=== PATIENT | male | born 1970 | race American Indian/Alaskan Native ===

== ENCOUNTER 2019-03-07 15:24 | Observation (INO) | payer OTHER ==
--- NOTE | 2019-03-07 15:47 | Event Note ---
ED Screening Note Date of service: 03/07/19 Time: 15:43 ED Screening Note: This is a 48 y.o. M. that presents to the ER with abdominal pain since yesterday. + Nausea, hot flashes, and upper abdominal pain - recent travel, diarrhea, vomiting, fever, chest pain, and palpitations This initial assessment/diagnostic orders/clinical plan/treatment(s) is/are subject to change based on patients health status, clinical progression and re- assessment by fellow clinical providers in the ED. Further treatment and workup at subsequent clinical providers discretion. Patient/guardian urged not to elope from the ED as their condition may be serious if not clinically assessed and managed. Initial orders include: Labs
[2019-03-07 16:09] LABS: Basophils % (Auto) 0.2 % (0.0-1.8); Eosinophils % (Auto) 0.4 % (0.0-4.3); Hematocrit 51.6 % (35.5-45.6); Hemoglobin 17.2 gm/dl (11.8-15.2); Lymphocytes # (Auto) 0.8 K/mm3 (1.2-5.4); Mean Corpuscular HGB Conc 33 % (32-34); Mean Corpuscular Volume 91 fl (84-94); Monocytes # (Auto) 0.6 K/mm3 (0.0-0.8); Monocytes % (Auto) 9.3 % (0.0-7.3); Platelet Count 210 K/mm3 (140-440); Red Blood Count 5.68 M/mm3 (3.65-5.03); Red Cell Distribution Width 12.7 % (13.2-15.2)
[2019-03-07 16:20] LABS: Albumin 4.5 g/dL (3.9-5); BUN/Creatinine Ratio 14; Blood Urea Nitrogen 11 mg/dL (9-20); Calcium 8.9 mg/dL (8.4-10.2); Hemolysis Index 95
[2019-03-07 16:35] LABS: Alanine Aminotransferase 833 units/L (7-56)
[2019-03-07] MEDS ORDERED: SODIUM CHLORIDE 0.9% 1000 ML 1,000 ML IV ONE ×2 (16:41→18:24)
[2019-03-07] MEDS ORDERED: ONDANSETRON 4 MG/2 ML INJ IV ONE (16:50)
[2019-03-07] MEDS ORDERED: MORPHINE 4 MG/1 ML INJ IV ONE (16:50)
--- NOTE | 2019-03-07 18:11 | Emergency Department Report ---
HPI - HPI HPI: 48 YO MALE COMES TO ER CO SEVERE ABD PAIN APOLLO RUQ. 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 OCC ETOH- LAST 3 W AGO. HAS NOT SEEN MD OR TAKEN ANY MEDS TO FEEL BETTER. PAIN 03/21 APOLLO RUQ/EIPIGASTRIC AREA. NO DIARRHEA NO FEVER OR CHILLS NEVER HAD IN THE PAST NO DYSURIA PMH NONE PSH NONE RX NONE ALLERGIES NONE <OLIVIER MORENO - Last Filed: 03/07/19 18:48> <JEROME PARKS - Last Filed: 03/07/19 20:04> - General Chief Complaint: Abdominal Pain Time Seen by Provider: 03/07/19 15:43 ED Past Medical Hx - Past Medical History Previous Medical History?: No - Surgical History Past Surgical History?: No - Social History Smoking Status: Never Smoker Substance Use Type: Alcohol <OLIVIER MORENO - Last Filed: 03/07/19 18:48> ED Review of Systems ROS: Stated complaint: ABD PAIN Other details as noted in HPI Comment: All other systems reviewed and negative <OLIVIER MORENO - Last Filed: 03/07/19 18:48> ROS: Stated complaint: ABD PAIN Other details as noted in HPI <JEROME PARKS Filed: 03/07/19 20:04> Physical Exam - Physical Exam Vital Signs: Vital Signs 03/07/19 15:43 Temperature 98.4 F Pulse Rate 57 L Respiratory 18 Rate Blood Pressure 148/87 O2 Sat by Pulse 97 Oximetry Physical Exam: ALERT AND ORIENTED S1S2 LUNGS CTA ABD TENDERNESS RUQ AND EPIGASTRIC ON LIGHT AND DEEP PALPATION NO CVA TENDERNESS NO EDEMA/NO JVD/ NO ASCITIES NO JAUNDICE APPRECIATED ON EXAM <OLIVIER MORENO - Last Filed: 03/07/19 18:48> - Physical Exam Vital Signs: Vital Signs 03/07/19 15:43 Temperature 98.4 F Pulse Rate 57 L Respiratory 18 Rate Blood Pressure 148/87 O2 Sat by Pulse 97 Oximetry <JEROME PARKS - Last Filed: 03/07/19 20:04> ED Course Vital Signs 03/07/19 15:43 Temperature 98.4 F Pulse Rate 57 L Respiratory 18 Rate Blood Pressure 148/87 O2 Sat by Pulse 97 Oximetry - Reevaluation(s) Reevaluation #1: 03/07/19 18:45 PT WITH ADEQUATE PAIN CONTROL AT THIS TIME. PT AND FAMILY UPDATED ON PLAN OF CARE <OLIVIER MORENO - Last Filed: 03/07/19 18:48> Vital Signs 03/07/19 15:43 Temperature 98.4 F Pulse Rate 57 L Respiratory 18 Rate Blood Pressure 148/87 O2 Sat by Pulse 97 Oximetry <JEROME PARKS - Last Filed: 03/07/19 20:04> ED Medical Decision Making - Lab Data Result diagrams: 03/07/19 15:51 03/07/19 15:51 - Radiology Data Radiology results: report reviewed, image reviewed - Medical Decision Making Lab Results 03/07/19 03/07/19 Range/Units 15:51 15:51 WBC 6.4 (4.5-11.0) K/mm3 RBC 5.68 H (3.65-5.03) M/mm3 Hgb 17.2 H (11.8-15.2) gm/dl Hct 51.6 H (35.5-45.6) % MCV 91 (84-94) fl MCH 30 (28-32) pg MCHC 33 (32-34) % RDW 12.7 L (13.2-15.2) % Plt Count 210 (140-440) K/mm3 Lymph % (Auto) 12.0 L (13.4-35.0) % [place] % (Auto) 9.3 H (0.0-7.3) % Eos % (Auto) 0.4 (0.0-4.3) % Baso % (Auto) 0.2 (0.0-1.8) % Lymph # 0.8 L (1.2-5.4) K/mm3 [place] # 0.6 (0.0-0.8) K/mm3 Eos # 0.0 (0.0-0.4) K/mm3 Baso # 0.0 (0.0-0.1) K/mm3 Seg Neutrophils % 78.1 H (40.0-70.0) % Seg Neutrophils # 5.0 (1.8-7.7) K/mm3 Sodium 140 (137-145) mmol/L Potassium 4.0 (3.6-5.0) mmol/L Chloride 101.1 (98-107) mmol/L Carbon Dioxide 28 (22-30) mmol/L Anion Gap 15 mmol/L BUN 11 (9-20) mg/dL Creatinine 0.8 (0.8-1.5) mg/dL Estimated GFR > 60 ml/min BUN/Creatinine Ratio 14 % Glucose 124 H (75-100) mg/dL Calcium 8.9 (8.4-10.2) mg/dL Total Bilirubin 3.30 H (0.1-1.2) mg/dL AST 596 H (5-40) units/L ALT 833 H (7-56) units/L Alkaline Phosphatase 124 (35-129) units/L Total Protein 8.2 (6.3-8.2) g/dL Albumin 4.5 (3.9-5) g/dL Albumin/Globulin Ratio 1.2 % Lipase 27 (13-60) units/L Labs 03/07/19 03/07/19 15:51 15:51 WBC 6.4 RBC 5.68 H Hgb 17.2 H Hct 51.6 H MCV 91 MCH 30 MCHC 33 RDW 12.7 L Plt Count 210 Lymph % (Auto) 12.0 L [place] % (Auto) 9.3 H Eos % (Auto) 0.4 Baso % (Auto) 0.2 Lymph # 0.8 L [place] # 0.6 Eos # 0.0 Baso # 0.0 Seg Neutrophils % 78.1 H Seg Neutrophils # 5.0 Sodium 140 Potassium 4.0 Chloride 101.1 Carbon Dioxide 28 Anion Gap 15 BUN 11 Creatinine 0.8 Estimated GFR > 60 BUN/Creatinine Ratio 14 Glucose 124 H Calcium 8.9 Total Bilirubin 3.30 H AST 596 H ALT 833 H Alkaline Phosphatase 124 Total Protein 8.2 Albumin 4.5 Albumin/Globulin Ratio 1.2 Lipase 27 MEDICATED FOR PAIN/2L NS/ ZOFRAN/PROTONIX IN ER LABS NOTED CT NOTED 1844 WILL SEND FOR ULTRASOUND RUQ PER CT RECS UA PENDING PT CURRENTLY WITH IMPROVED PAIN P MORPHINE FAMILY NOW AT BEDSIDE PT AND FAMILY UPDATED ON PLAN OF CARE - Differential Diagnosis RO PANCREATITIS/CHOLEY/ GASTRITIS <OLIVIER MORENO - Last Filed: 03/07/19 18:48> - Lab Data Result diagrams: 03/07/19 15:51 03/07/19 15:51 - Medical Decision Making This is a 48-year-old male that was signed out to me by Reema Grigsby for a pending ultrasound report. Patient result has been discussed with Dr. carrington and agrees for admission. I will start patient on Zosyn and place patient nothing by mouth. Patient was consulted with Dr. Dasilva by Dr. Jung. Patien t will be admitted with Dr. Georges. At time of admission, the patient does not seem toxic or ill in appearance. No acute signs of distress noted. Patient agrees to admission treatment plan of care. No further questions noted by the patient. <JEROME PARKS - Last Filed: 03/07/19 20:04> Critical care attestation.: If time is entered above; I have spent that time in minutes in the direct care of this critically ill patient, excluding procedure time. <OLIVIER MORENO A - Last Filed: 03/07/19 18:48> Critical care attestation.: If time is entered above; I have spent that time in minutes in the direct care of this critically ill patient, excluding procedure time. <JEROME PARKS - Last Filed: 03/07/19 20:04> ED Disposition Is pt being admited?: No Does the pt Need Aspirin: No Time of Disposition: 18:26 <OLIVIER MORENO - Last Filed: 03/07/19 18:48> Is pt being admited?: Yes <JEROME PARKS Filed: 03/07/19 20:04> Clinical Impression: Acute cholecystitis Disposition: OP ADMIT IP TO THIS HOSP Condition: Stable
--- NOTE | 2019-03-07 18:15 | Cat Scan Report ---
CT of the abdomen and pelvis with intravenous contrast INDICATION / CLINICAL INFORMATION: Generalized abdominal pain. TECHNIQUE: The patient received 100 cc Omnipaque [address] scans at this location are performed using CT dose reduction for ALARA by means of automated exposure control. COMPARISON: None available. FINDINGS: ABDOMEN: There are calcified stones in the gallbladder. The gallbladder is normal in size and demonst rates mild diffuse wall thickening. There is mild periportal edema. The bile ducts are normal in mayela lorena. The pancreas, spleen, adrenal glands and left kidney are normal. There is a subcentimeter simple cyst in the right mid kidney anteriorly. There are multiple mildly dilated fluid-filled proximal small manas wel loops with normal mid to distal small bowel present. I see no evidence of bowel wall thickening o r free air. No adenopathy is identified. There is mild bibasilar dependent atelectasis. PELVIS: The prostate gland is mildly enlarged. The distal ureters and urinary bladder are normal. A n ormal appendix is present and there is no evidence of diverticulitis. No abnormal mass or fluid colle ction is seen. I do not identify a hernia. No acute osseous abnormality is identified. IMPRESSION: 1. Cholelithiasis. Mild diffuse gallbladder wall thickening is nonspecific and may be related to acut e or chronic cholecystitis. Depending on clinical findings, gallbladder ultrasound or hepatobiliary s cintigraphy may be helpful in further evaluation. 2. Mild periportal edema may just be reactive. Mildly dilated loop filled proximal small bowel loops are nonspecific and likely related to a localized adynamic ileus. Signer Name: Raffy Nevarez MD Signed: 03/07/2019 6:11 PM Workstation Name: [id number]
[2019-03-07] MEDS ORDERED: PANTOPRAZOLE 40 MG INJ IV ONE (18:24)
[2019-03-07 18:41] LABS: Bilirubin,Urine NEG (Negative); Blood,Urine MOD (Negative); Color,Urine Amber (Yellow); Mucus,Urine 3+ /HPF; Protein,Urine <15 mg/dL mg/dL (Negative)
--- NOTE | 2019-03-07 19:35 | Ultrasound Report ---
US abdomen limited INDICATION / CLINICAL INFORMATION: RUQ PAIN. COMPARISON: CT abdomen done earlier today. FINDINGS: Multiple stones are demonstrated in the gallbladder. Ultrasound also shows gallbladder wall thickenin g, which could be acute or chronic. There is no pericholecystic edema. Common duct is normal in size. IMPRESSION: 1. Cholelithiasis. There is certainly some degree of chronic cholecystitis, and there may well be acu te superimposed acute cholecystitis. Signer Name: Issa Solomon MD Signed: 03/07/2019 7:31 PM Workstation Name: [id number]
[2019-03-07] MEDS ORDERED: PIPERACIL/TAZOBACTA 4.5/NS 100 4.5 GM/100 ML VIAL IV ONE (19:59)
--- NOTE | 2019-03-07 20:00 | Event Note ---
Face to Face: asked by nurse practitioner to evaluate patient. In short, this is a 48-year-old gentleman with a complaint of epigastric and right upper quadrant pain, which started yesterday. he is not especially tender however, he has a transaminitis, and both ultrasound and CAT scan suggests a possible acute cholecystitis. Given transaminitis, history and physical, plan to admit to medical service for pain control, serial abdominal exams, empiric antibiotic therapy, and hida scan We'll also obtain general surgical consultation. Negative Nava sign at this time. Vital Signs 03/07/19 15:43 Temperature 98.4 F Pulse Rate 57 L Respiratory 18 Rate Blood Pressure 148/87 O2 Sat by Pulse 97 Oximetry Lab Results 03/07/19 03/07/19 03/07/19 Range/Units 15:45 15:51 15:51 WBC 6.4 (4.5-11.0) K/mm3 RBC 5.68 H (3.65-5.03) M/mm3 Hgb 17.2 H (11.8-15.2) gm/dl Hct 51.6 H (35.5-45.6) % MCV 91 (84-94) fl MCH 30 (28-32) pg MCHC 33 (32-34) % RDW 12.7 L (13.2-15.2) % Plt Count 210 (140-440) K/mm3 Lymph % (Auto) 12.0 L (13.4-35.0) % [place] % (Auto) 9.3 H (0.0-7.3) % Eos % (Auto) 0.4 (0.0-4.3) % Baso % (Auto) 0.2 (0.0-1.8) % Lymph # 0.8 L (1.2-5.4) K/mm3 [place] # 0.6 (0.0-0.8) K/mm3 Eos # 0.0 (0.0-0.4) K/mm3 Baso # 0.0 (0.0-0.1) K/mm3 Seg Neutrophils % 78.1 H (40.0-70.0) % Seg Neutrophils # 5.0 (1.8-7.7) K/mm3 Sodium 140 (137-145) mmol/L Potassium 4.0 (3.6-5.0) mmol/L Chloride 101.1 (98-107) mmol/L Carbon Dioxide 28 (22-30) mmol/L Anion Gap 15 mmol/L BUN 11 (9-20) mg/dL Creatinine 0.8 (0.8-1.5) mg/dL Estimated GFR > 60 ml/min BUN/Creatinine Ratio 14 % Glucose 124 H (75-100) mg/dL Calcium 8.9 (8.4-10.2) mg/dL Total Bilirubin 3.30 H (0.1-1.2) mg/dL AST 596 H (5-40) units/L ALT 833 H (7-56) units/L Alkaline Phosphatase 124 (35-129) units/L Total Protein 8.2 (6.3-8.2) g/dL Albumin 4.5 (3.9-5) g/dL Albumin/Globulin Ratio 1.2 % Lipase 27 (13-60) units/L Urine Color Thi (Yellow) Urine Turbidity Clear (Clear) Urine pH 5.0 (5.0-7.0) Ur Specific [place] 1.016 (1.003-1.030) Urine Protein <15 mg/dl (Negative) mg/dL Urine Glucose (UA) Neg (Negative) mg/dL Urine Ketones Neg (Negative) mg/dL Urine Blood Mod (Negative) Urine Nitrite Neg (Negative) Urine Bilirubin Neg (Negative) Urine Urobilinogen 4.0 (<2.0) mg/dL Ur Leukocyte Esterase Neg (Negative) Urine WBC (Auto) 3.0 (0.0-6.0) /HPF Urine RBC (Auto) 7.0 (0.0-6.0) /HPF U Epithel Cells (Auto) < 1.0 (0-13.0) /HPF Urine Mucus 3+ /HPF Referring Physician: OLIVIER MORENO Patient Name: DOROTHEA GALLARDO Date of : 1970 Sex: Male Report Date: 2019-03-07 Report Status: Finalized Findings [facility] [address] [place] [address] Ultrasound Report Signed Patient: DOROTHEA GALLARDO MR#: [id number] : 1970 Acct:[id number] Age/Sex: 48 / M ADM Date: 03/07/19 Loc: ED Attending Dr: Ordering Physician: OLIVIER MORENO Date of Service: 03/07/19 Procedure(s): US abdomen limited Accession Number(s): [id number] cc: OLIVIER MORENO US abdomen limited INDICATION / CLINICAL INFORMATION: RUQ PAIN. COMPARISON: CT abdomen done earlier today. FINDINGS: Multiple stones are demonstrated in the gallbladder. Ultrasound also shows gallbladder wall thickening, which could be acute or chronic. There is no pericholecystic edema. Common duct is normal in size. IMPRESSION: 1. Cholelithiasis. There is certainly some degree of chronic cholecystitis, and there may well be acute superimposed acute cholecystitis. Signer Name: Issa Solomon MD Signed: 03/07/2019 7:31 PM Workstation Name: [id number] Transcribed By: TM Dictated By: Issa Solomon MD Electronically Authenticated By: Issa Solomon MD Signed Date/Time: 03/07/191930 Print Report Referring Physician: OLIVIER MORENO Patient Name: DOROTHEA GALLARDO Date of : 1970 Sex: Male Report Date: 2019-03-07 Report Status: Finalized Findings [place] [id number] Cat Scan Report Signed Patient: DOROTHEA GALLARDO MR#: [id number] : 1970 Acct:[id number] Age/Sex: 48 / M ADM Date: 03/07/19 Loc: ED Attending Dr: Ordering Physician: OLIVIER MORENO Date of Service: 03/07/19 Procedure(s): CT abdomen pelvis w con Accession Number(s): [id number] cc: OLIVIER MORENO CT of the abdomen and pelvis with intravenous contrast INDICATION / CLINICAL INFORMATION: Generalized abdominal pain. TECHNIQUE: The patient received 100 cc Omnipaque [address] scans at this location are performed using CT dose reduction for ALARA by means of automated exposure control. COMPARISON: None available. FINDINGS: ABDOMEN: There are calcified stones in the gallbladder. The gallbladder is normal in size and demonstrates mild diffuse wall thickening. There is mild periportal edema. The bile ducts are normal in caliber. The pancreas, spleen, adrenal glands and left kidney are normal. There is a subcentimeter simple cyst in the right mid kidney anteriorly. There are multiple mildly dilated fluid-filled proximal small bowel loops with normal mid to distal small bowel present. I see no evidence of bowel wall thickening or free air. No adenopathy is identified. There is mild bibasilar dependent atelectasis. PELVIS: The prostate gland is mildly enlarged. The distal ureters and urinary bladder are normal. A normal appendix is present and there is no evidence of diverticulitis. No abnormal mass or fluid collection is seen. I do not identify a hernia. No acute osseous abnormality is identified. IMPRESSION: 1. Cholelithiasis. Mild diffuse gallbladder wall thickening is nonspecific and may be related to acute or chronic cholecystitis. Depending on clinical findings, gallbladder ultrasound or hepatobiliary scintigraphy may be helpful in further evaluation. 2. Mild periportal edema may just be reactive. Mildly dilated loop filled proximal small bowel loops are nonspecific and likely related to a localized adynamic ileus. Signer Name: Raffy Nevarez MD Signed: 03/07/2019 6:11 PM Workstation Name: [id number] Transcribed By: RT Dictated By: Raffy Nevarez MD Electronically Authenticated By: Raffy Nevarez MD Signed Date/Time: 03/07/191810 DD/ 05
[2019-03-07] MEDS ORDERED: ACETAMINOPHEN 325 MG TAB PO PRN (22:40)
[2019-03-07] MEDS ORDERED: MORPHINE 4 MG/1 ML INJ IV PRN (22:40)
[2019-03-07] MEDS ORDERED: ONDANSETRON 4 MG/2 ML INJ IV PRN (22:40)
--- NOTE | 2019-03-07 23:05 | History and Physical Report ---
History of Present Illness Chief complaint: Right upper quadrant pain History of present illness: 48-year-old man who denies having any significant past medical history who presents to the hospital complaining of right upper quadrant pain. He states that the pain is as bad as 10 out of 10, is in epigastric area and right upper quadrant. Does not radiate anywhere. No diarrhea, no fevers no chills. He said he is never had pain like this in his life. He denies eating any food out left standing or eating any takeout. Denies any sick contacts. Pain has been going on for a few days. States that has resolved since getting pain meds in the ER. Past History Past Medical History: No medical history Past Surgical History: No surgical history Social history: no significant social history Family history: no significant family history Medications and Allergies Allergies Allergy/AdvReac Type Severity Reaction Status Date / Time No Known Allergies Allergy Verified 03/07/19 22:49 Active Meds: Active Medications Acetaminophen (Tylenol) 650 mg PO Q4H PRN PRN Reason: Pain MILD(1-3)/Fever >100.5/FERRELL Enoxaparin Sodium (Lovenox) 40 mg SUB-Q QDAY CLARICE Levofloxacin/Dextrose (Levaquin 750mg/150ml) 750 mg in 150 mls @ 100 mls/hr IV Q24HR CLARICE; Protocol Sodium Chloride (Nacl 0.45% 1000 Ml) 1,000 mls @ 125 mls/hr IV DIRECT CLARICE Morphine Sulfate (Morphine) 4 mg IV Q4H PRN PRN Reason: Pain , Severe (7-10) Ondansetron HCl (Zofran) 4 mg IV Q4HR PRN PRN Reason: Nausea And Vomiting Sodium Chloride (Sodium Chloride Flush Syringe 10 Ml) 10 ml IV BID CLARICE Sodium Chloride (Sodium Chloride Flush Syringe 10 Ml) 10 ml IV PRN PRN PRN Reason: LINE FLUSH Review of Systems All systems: negative Constitutional: anorexia Ears, nose, mouth and throat: no ear pain Cardiovascular: no chest pain Respiratory: no cough Gastrointestinal: abdominal pain, no vomiting Genitourinary Male: no dysuria Rectal: no pain Musculoskeletal: no neck stiffness Integumentary: no rash Neurological: no head injury Psychiatric: no anxiety Endocrine: no cold intolerance Hematologic/Lymphatic: no easy bruising Allergic/Immunologic: no urticaria Exam - Constitutional Vitals: Temp Pulse Resp BP Pulse Ox 97.5 F L 61 18 119/77 96 03/07/19 19:58 03/07/19 19:58 03/07/19 19:58 03/07/19 19:58 03/07/19 19:58 General appearance: Present: no acute distress, well-nourished - EENT Eyes: Present: PERRL ENT: hearing intact, clear oral mucosa - Neck Neck: Present: supple, normal ROM - Respiratory Respiratory effort: normal Respiratory: bilateral: CTA - Cardiovascular Heart Sounds: Present: S1 & S2. Absent: rub, click - Extremities Extremities: pulses symmetrical, No edema Peripheral Pulses: within normal limits - Abdominal General gastrointestinal: Present: soft, non-tender, non-distended, normal bowel sounds Male genitourinary: Present: normal - Integumentary Integumentary: Present: clear, warm, dry - Musculoskeletal Musculoskeletal: gait normal, strength equal bilaterally - Psychiatric Psychiatric: appropriate mood/affect, intact judgment & insight - Neurologic Neurologic: CNII-XII intact, moves all extremities Results - Labs CBC & Chem 7: 03/07/19 15:51 03/07/19 15:51 Labs: Laboratory Last Values WBC 6.4 K/mm3 (4.5-11.0) 03/07/19 15:51 RBC 5.68 M/mm3 (3.65-5.03) H 03/07/19 15:51 Hgb 17.2 gm/dl (11.8-15.2) H 03/07/19 15:51 Hct 51.6 % (35.5-45.6) H 03/07/19 15:51 MCV 91 fl (84-94) 03/07/19 15:51 MCH 30 pg (28-32) 03/07/19 15:51 MCHC 33 % (32-34) 03/07/19 15:51 RDW 12.7 % (13.2-15.2) L 03/07/19 15:51 Plt Count 210 K/mm3 (140-440) 03/07/19 15:51 Lymph % (Auto) 12.0 % (13.4-35.0) L 03/07/19 15:51 [place] % (Auto) 9.3 % (0.0-7.3) H 03/07/19 15:51 Eos % (Auto) 0.4 % (0.0-4.3) 03/07/19 15:51 Baso % (Auto) 0.2 % (0.0-1.8) 03/07/19 15:51 Lymph # 0.8 K/mm3 (1.2-5.4) L 03/07/19 15:51 [place] # 0.6 K/mm3 (0.0-0.8) 03/07/19 15:51 Eos # 0.0 K/mm3 (0.0-0.4) 03/07/19 15:51 Baso # 0.0 K/mm3 (0.0-0.1) 03/07/19 15:51 Seg Neutrophils % 78.1 % (40.0-70.0) H 03/07/19 15:51 Seg Neutrophils # 5.0 K/mm3 (1.8-7.7) 03/07/19 15:51 Sodium 140 mmol/L (137-145) 03/07/19 15:51 Potassium 4.0 mmol/L (3.6-5.0) 03/07/19 15:51 Chloride 101.1 mmol/L (98-107) 03/07/19 15:51 Carbon Dioxide 28 mmol/L (22-30) 03/07/19 15:51 15 mmol/L 03/07/19 15:51 BUN 11 mg/dL (9-20) 03/07/19 15:51 0.8 mg/dL (0.8-1.5) 03/07/19 15:51 Estimated GFR > 60 ml/min 03/07/19 15:51 14 % 03/07/19 15:51 Glucose 124 mg/dL (75-100) H 03/07/19 15:51 Calcium 8.9 mg/dL (8.4-10.2) 03/07/19 15:51 3.30 mg/dL (0.1-1.2) H 03/07/19 15:51 AST 596 units/L (5-40) H 03/07/19 15:51 ALT 833 units/L (7-56) H 03/07/19 15:51 124 units/L (35-129) 03/07/19 15:51 8.2 g/dL (6.3-8.2) 03/07/19 15:51 4.5 g/dL (3.9-5) 03/07/19 15:51 1.2 % 03/07/19 15:51 27 units/L (13-60) 03/07/19 15:51 Thi (Yellow) 03/07/19 15:45 Clear (Clear) 03/07/19 15:45 5.0 (5.0-7.0) 03/07/19 15:45 Ur Specific [place] 1.016 (1.003-1.030) 03/07/19 15:45 <15 mg/dl mg/dL (Negative) 03/07/19 15:45 Neg mg/dL (Negative) 03/07/19 15:45 Neg mg/dL (Negative) 03/07/19 15:45 Mod (Negative) 03/07/19 15:45 Neg (Negative) 03/07/19 15:45 Neg (Negative) 03/07/19 15:45 4.0 mg/dL (<2.0) 03/07/19 15:45 Ur Leukocyte Esterase Neg (Negative) 03/07/19 15:45 3.0 /HPF (0.0-6.0) 03/07/19 15:45 7.0 /HPF (0.0-6.0) 03/07/19 15:45 U Epithel Cells (Auto) < 1.0 /HPF (0-13.0) 03/07/19 15:45 3+ /HPF 03/07/19 15:45 Assessment and Plan Assessment and plan: 48-year-old man who presents with right upper quadrant and pain in the hypogastrium CT abdomen pelvis; cholelithiasis and diffuse gallbladder wall thickening, mild periportal edema. Right upper quadrant sono; cholelithiasis and some degree of chronic cholecystitis with superimposed acute cholecystitis Acute cholecystitis ED discussed with general surgeon Dr. Herzog, MRCP in the a.m., keep n.p.o., IV fluids, pain meds and nausea meds. Preventative health counseling performed for 17 minutes DVT prophylaxis with Lovenox
[2019-03-08] MEDS: SODIUM CHLORIDE 0.45% 1000 ML 1,000 ML IV SCH ×2 (01:46→11:05)
[2019-03-08 07:21] LABS: Basophils % (Auto) 0.9 % (0.0-1.8); Eosinophils # (Auto) 0.1 K/mm3 (0.0-0.4); Eosinophils % (Auto) 1.2 % (0.0-4.3); Hematocrit 42.4 % (35.5-45.6); Hemoglobin 14.5 gm/dl (11.8-15.2); Lymphocytes % (Auto) 23.9 % (13.4-35.0); Mean Corpuscular HGB Conc 34 % (32-34); Mean Corpuscular Volume 90 fl (84-94); Monocytes # (Auto) 0.4 K/mm3 (0.0-0.8); Monocytes % (Auto) 10.3 % (0.0-7.3); Platelet Count 165 K/mm3 (140-440); Red Blood Count 4.71 M/mm3 (3.65-5.03)
[2019-03-08 07:44] LABS: BUN/Creatinine Ratio 8; Blood Urea Nitrogen 8 mg/dL (9-20); Calcium 7.9 mg/dL (8.4-10.2); Hemolysis Index 4
--- NOTE | 2019-03-08 08:19 | Progress Note ---
Assessment and Plan Full consult dictated: History of Present Illness Chief complaint: Right upper quadrant pain History of present illness: 48-year-old man who denies having any significant past medical history who presents to the hospital complaining of right upper quadrant pain. He states that the pain is as bad as 10 out of 10, is in epigastric area and right upper quadrant. Does not radiate anywhere. No diarrhea, no fevers no chills. He said he is never had pain like this in his life. He denies eating any food out left standing or eating any takeout. Denies any sick contacts. Pain has been going on for a few days. States that has resolved since getting pain meds in the ER. Past History Past Medical History: No medical history Past Surgical History: No surgical history Social history: no significant social history Family history: no significant family history Pt admitted with RUQ abd pain but now "much better". has not received narcotics since yesterday pm Abd soft, non tender at present. GB US & CT findings as below. r/o biliary colic/ cholecystitis r/o CBD stones (elevated T Franklyn) Keep NPO IV Levaquin await MRCP findings. will follow with you GB US FINDINGS: Multiple stones are demonstrated in the gallbladder. Ultrasound also shows gallbladder wall thickening, which could be acute or chronic. There is no pericholecystic edema. Common duct is normal in size. IMPRESSION: 1. Cholelithiasis. There is certainly some degree of chronic cholecystitis, and there may well be acute superimposed acute cholecystitis. CT IMPRESSION: 1. Cholelithiasis. Mild diffuse gallbladder wall thickening is nonspecific and may be related to acute or chronic cholecystitis. Depending on clinical findings, gallbladder ultrasound or hepatobiliary scintigraphy may be helpful in further evaluation. 2. Mild periportal edema may just be reactive. Mildly dilated loop filled proximal small bowel loops are nonspecific and likely related to a localized adynamic ileus. Laboratory Tests 03/07/19 03/08/19 15:51 06:39 WBC 4.4 L Hgb 14.5 Hct 42.4 D Total Bilirubin 3.30 H AST 596 H ALT 833 H Alkaline Phosphatase 124 Lipase 27 Objective Vital Signs - 12hr 03/07/19 03/08/19 03/08/19 22:43 01:00 01:12 Temperature 99.1 F 97.4 F L Pulse Rate 63 59 L 63 Respiratory 17 18 Rate Blood Pressure Blood Pressure 137/81 114/72 [Right] O2 Sat by Pulse 97 94 94 Oximetry 03/08/19 03/08/19 04:41 07:46 Temperature 97.6 F 98.0 F Pulse Rate 48 L 53 L Respiratory 18 18 Rate Blood Pressure 125/53 Blood Pressure 101/56 [Right] O2 Sat by Pulse 94 99 Oximetry - Labs 03/08/19 06:39 03/08/19 06:39 Diabetes panel 03/07/19 03/08/19 Range/Units 15:51 06:39 Sodium 140 142 (137-145) mmol/L Potassium 4.0 3.8 (3.6-5.0) mmol/L Chloride 101.1 105.2 (98-107) mmol/L Carbon Dioxide 28 24 (22-30) mmol/L BUN 11 8 L (9-20) mg/dL Creatinine 0.8 1.0 (0.8-1.5) mg/dL Glucose 124 H 90 (75-100) mg/dL Calcium 8.9 7.9 L (8.4-10.2) mg/dL AST 596 H (5-40) units/L ALT 833 H (7-56) units/L Alkaline Phosphatase 124 (35-129) units/L Total Protein 8.2 (6.3-8.2) g/dL Albumin 4.5 (3.9-5) g/dL Calcium panel 03/07/19 03/08/19 Range/Units 15:51 06:39 Calcium 8.9 7.9 L (8.4-10.2) mg/dL Albumin 4.5 (3.9-5) g/dL Pituitary panel 03/07/19 03/08/19 Range/Units 15:51 06:39 Sodium 140 142 (137-145) mmol/L Potassium 4.0 3.8 (3.6-5.0) mmol/L Chloride 101.1 105.2 (98-107) mmol/L Carbon Dioxide 28 24 (22-30) mmol/L BUN 11 8 L (9-20) mg/dL Creatinine 0.8 1.0 (0.8-1.5) mg/dL Glucose 124 H 90 (75-100) mg/dL Calcium 8.9 7.9 L (8.4-10.2) mg/dL Adrenal panel 03/07/19 03/08/19 Range/Units 15:51 06:39 Sodium 140 142 (137-145) mmol/L Potassium 4.0 3.8 (3.6-5.0) mmol/L Chloride 101.1 105.2 (98-107) mmol/L Carbon Dioxide 28 24 (22-30) mmol/L BUN 11 8 L (9-20) mg/dL Creatinine 0.8 1.0 (0.8-1.5) mg/dL Glucose 124 H 90 (75-100) mg/dL Calcium 8.9 7.9 L (8.4-10.2) mg/dL Total Bilirubin 3.30 H (0.1-1.2) mg/dL AST 596 H (5-40) units/L ALT 833 H (7-56) units/L Alkaline Phosphatase 124 (35-129) units/L Total Protein 8.2 (6.3-8.2) g/dL Albumin 4.5 (3.9-5) g/dL
[2019-03-08] MEDS: ENOXAPARIN 40 MG/0.4 ML INJ SUB-Q SCH (11:09)
--- NOTE | 2019-03-08 21:01 | Progress Note ---
Assessment and Plan Assessment and plan: 48-year-old man who presents with right upper quadrant pain CT abdomen pelvis; cholelithiasis and diffuse gallbladder wall thickening, mild periportal edema. Right upper quadrant sono; cholelithiasis and some degree of chronic cholecystitis with superimposed acute cholecystitis --Acute on chronic cholecystitis Continue Current antibiotics IV fluids and supportive care Follow MRCP, surgery following Nothing by mouth status --transaminitis; Closely monitor, GI consult if needed Follow MRCP --Cholelithiasis; supportive care Follow MRCP --DVT prophylaxis; Lovenox Closely monitor and adjust management as needed Plan of care is reviewed with the patient and his nurse History Interval history: Patient seen and examined and medical records reviewed Patient is ambulatory in the hallway Mild abdominal pain Vital signs reviewed Hospitalist Physical - Constitutional Vitals: Temp Pulse Resp BP Pulse Ox 98.2 F 50 L 20 97/47 98 03/08/19 20:10 03/08/19 16:10 03/08/19 20:10 03/08/19 20:10 03/08/19 16:10 General appearance: Present: no acute distress, well-nourished - EENT Eyes: Present: PERRL, EOM intact - Neck Neck: Present: supple, normal ROM - Respiratory Respiratory effort: normal Respiratory: bilateral: diminished, negative: rales, rhonchi, wheezing - Cardiovascular Rhythm: regular Heart Sounds: Present: S1 & S2 - Extremities Extremities: no ischemia, No edema - Abdominal General gastrointestinal: soft, non-tender, non-distended, normal bowel sounds - Integumentary Integumentary: Present: clear, warm - Psychiatric Psychiatric: appropriate mood/affect, cooperative - Neurologic Neurologic: moves all extremities Results - Labs CBC & Chem 7: 03/09/19 05:23 03/09/19 05:23 Labs: Laboratory Last Values WBC 4.4 K/mm3 (4.5-11.0) L 03/08/19 06:39 RBC 4.71 M/mm3 (3.65-5.03) 03/08/19 06:39 Hgb 14.5 gm/dl (11.8-15.2) 03/08/19 06:39 Hct 42.4 % (35.5-45.6) D 03/08/19 06:39 MCV 90 fl (84-94) 03/08/19 06:39 MCH 31 pg (28-32) 03/08/19 06:39 MCHC 34 % (32-34) 03/08/19 06:39 RDW 13.0 % (13.2-15.2) L 03/08/19 06:39 Plt Count 165 K/mm3 (140-440) 03/08/19 06:39 Lymph % (Auto) 23.9 % (13.4-35.0) 03/08/19 06:39 [place] % (Auto) 10.3 % (0.0-7.3) H 03/08/19 06:39 Eos % (Auto) 1.2 % (0.0-4.3) 03/08/19 06:39 Baso % (Auto) 0.9 % (0.0-1.8) 03/08/19 06:39 Lymph # 1.0 K/mm3 (1.2-5.4) L 03/08/19 06:39 [place] # 0.4 K/mm3 (0.0-0.8) 03/08/19 06:39 Eos # 0.1 K/mm3 (0.0-0.4) 03/08/19 06:39 Baso # 0.0 K/mm3 (0.0-0.1) 03/08/19 06:39 Seg Neutrophils % 63.7 % (40.0-70.0) 03/08/19 06:39 Seg Neutrophils # 2.8 K/mm3 (1.8-7.7) 03/08/19 06:39 Sodium 142 mmol/L (137-145) 03/08/19 06:39 Potassium 3.8 mmol/L (3.6-5.0) 03/08/19 06:39 Chloride 105.2 mmol/L (98-107) 03/08/19 06:39 Carbon Dioxide 24 mmol/L (22-30) 03/08/19 06:39 17 mmol/L 03/08/19 06:39 BUN 8 mg/dL (9-20) L 03/08/19 06:39 1.0 mg/dL (0.8-1.5) 03/08/19 06:39 Estimated GFR > 60 ml/min 03/08/19 06:39 8 % 03/08/19 06:39 Glucose 90 mg/dL (75-100) 03/08/19 06:39 Calcium 7.9 mg/dL (8.4-10.2) L 03/08/19 06:39 3.30 mg/dL (0.1-1.2) H 03/07/19 15:51 AST 596 units/L (5-40) H 03/07/19 15:51 ALT 833 units/L (7-56) H 03/07/19 15:51 124 units/L (35-129) 03/07/19 15:51 8.2 g/dL (6.3-8.2) 03/07/19 15:51 4.5 g/dL (3.9-5) 03/07/19 15:51 1.2 % 03/07/19 15:51 27 units/L (13-60) 03/07/19 15:51 Thi (Yellow) 03/07/19 15:45 Clear (Clear) 03/07/19 15:45 5.0 (5.0-7.0) 03/07/19 15:45 Ur Specific [place] 1.016 (1.003-1.030) 03/07/19 15:45 <15 mg/dl mg/dL (Negative) 03/07/19 15:45 Neg mg/dL (Negative) 03/07/19 15:45 Neg mg/dL (Negative) 03/07/19 15:45 Mod (Negative) 03/07/19 15:45 Neg (Negative) 03/07/19 15:45 Neg (Negative) 03/07/19 15:45 4.0 mg/dL (<2.0) 03/07/19 15:45 Ur Leukocyte Esterase Neg (Negative) 03/07/19 15:45 3.0 /HPF (0.0-6.0) 03/07/19 15:45 7.0 /HPF (0.0-6.0) 03/07/19 15:45 U Epithel Cells (Auto) < 1.0 /HPF (0-13.0) 03/07/19 15:45 3+ /HPF 03/07/19 15:45 Active Medications - Current Medications Current Medications: Generic Name Dose Route Start Last Admin Trade Name Bernice PRN Reason Stop Dose Admin Acetaminophen 650 mg 03/07/19 22:40 03/08/19 16:03 Tylenol PO 650 mg Q4H PRN Administration Pain MILD(1-3)/Fever >100.5/FERRELL Enoxaparin Sodium 40 mg 03/08/19 10:00 03/08/19 11:09 Lovenox SUB-Q Not Given QDAY CLARICE Levofloxacin/Dextrose 750 mg in 150 mls @ 100 mls/hr 03/08/19 10:00 03/08/19 11:03 Levaquin 750mg/150ml IV 100 mls/hr Q24HR CLARICE Administration Protocol Sodium Chloride 1,000 mls @ 125 mls/hr 03/07/19 23:00 03/08/19 11:05 Nacl 0.45% 1000 Ml IV 125 mls/hr DIRECT CLARICE Administration Morphine Sulfate 4 mg 03/07/19 22:40 Morphine IV Q4H PRN Pain , Severe (7-10) Ondansetron HCl 4 mg 03/07/19 22:40 Zofran IV Q4HR PRN Nausea And Vomiting Sodium Chloride 10 ml 03/08/19 10:00 03/08/19 11:09 Sodium Chloride Flush Syringe 10 Ml IV 10 ml BID CLARICE Administration Sodium Chloride 10 ml 03/07/19 22:40 Sodium Chloride Flush Syringe 10 Ml IV PRN PRN LINE FLUSH
--- NOTE | 2019-03-08 21:01 | Consultation ---
REASON FOR CONSULTATION: Rule out cholecystitis, rule out possible choledocholithiasis. HISTORY OF PRESENT ILLNESS: The patient is a pleasant 48-year-old gentleman who was admitted through the Emergency Room with recent onset of epigastric abdominal pain accompanied by nausea, but no vomiting. The patient states he is feeling " and has not received any narcotics since yesterday evening. PAST MEDICAL HISTORY: Negative. PAST SURGICAL HISTORY: Negative. ALLERGIES: No known allergies. MEDICATIONS: No medications. FAMILY HISTORY: Diabetes. SOCIAL HISTORY: Occasional ethanol intake. Denies any smoking. REVIEW OF SYSTEMS: Noncontributory. PHYSICAL EXAMINATION: GENERAL: At this time reveals the patient to be awake, alert, cooperative, sitting up in his bed, in no acute distress. VITAL SIGNS: Shown to be afebrile with a temperature of 97.6, blood pressure is 101/56, pulse of 48, respirations of 18. HEENT: Pupils are equal and reactive to light and accommodation. Sclerae are minimally icteric. ABDOMEN: Examination of the abdomen reveals to be soft and nontender at this time. No right upper quadrant tenderness could be elicited at this time. Bowel sounds are present and normal. LABORATORY DATA: Lab work at present includes a CBC, which shows a white count of 4.4, H and H is 14.5 and 42.4. Electrolytes are essentially within normal limits. LFTs are all elevated including a total bili of 3.3, AST is 596, ALT is 833, alk phos is 124. Gallbladder ultrasound has been performed, which reveals cholelithiasis and possibly some degree of chronic cholecystitis, but there is no pericholecystic edema or fluid noted. Common bile duct is described as normal in size. A CT scan of the abdomen was also performed and the CT shows cholelithiasis and mild diffuse gallbladder wall thickening, which may be nonspecific and may be related to chronic cholecystitis. IMPRESSION: At this time is that of a healthy 48-year-old gentleman, rule out cholecystitis. The patient clinically is stable and asymptomatic at present. Need to follow up on the elevated LFTs and total bilirubin. This may just be secondary to the acute cholecystitis, but we need to rule out any possible choledocholithiasis. RECOMMENDATIONS: At this time is to keep the patient n.p.o. Continue IV Levaquin. We will order MRCP to rule out any choledocholithiasis and follow the patient with you. JOB# [id number] CHANA/[place]
[2019-03-09] MEDS: SODIUM CHLORIDE 0.45% 1000 ML 1,000 ML IV SCH (01:35)
[2019-03-09 05:52] LABS: Basophils % (Auto) 0.9 % (0.0-1.8); Eosinophils # (Auto) 0.1 K/mm3 (0.0-0.4); Eosinophils % (Auto) 1.9 % (0.0-4.3); Hematocrit 44.9 % (35.5-45.6); Lymphocytes # (Auto) 1.1 K/mm3 (1.2-5.4); Lymphocytes % (Auto) 29.8 % (13.4-35.0); Mean Corpuscular HGB Conc 33 % (32-34); Mean Corpuscular Volume 90 fl (84-94); Monocytes # (Auto) 0.4 K/mm3 (0.0-0.8); Monocytes % (Auto) 9.9 % (0.0-7.3); Platelet Count 168 K/mm3 (140-440); Red Cell Distribution Width 12.9 % (13.2-15.2)
[2019-03-09 06:07] LABS: Alanine Aminotransferase 421 units/L (7-56); Albumin 3.6 g/dL (3.9-5); BUN/Creatinine Ratio 12; Blood Urea Nitrogen 12 mg/dL (9-20); Calcium 8.4 mg/dL (8.4-10.2); Hemolysis Index 7
[2019-03-09] MEDS: ENOXAPARIN 40 MG/0.4 ML INJ SUB-Q SCH (09:04)
--- NOTE | 2019-03-09 12:43 | Progress Note ---
Assessment and Plan HD # 2 Pt's MRCP was not done yesterday. Pt currently down having it done today. Family states pt not having any pain or other complaints LFT's and T Franklyn much improved awaiting MRCP results. If no CBD stones, then will attempt low fat cl liq diet Selected Entries 03/09/19 07:01 Temperature 97.8 F Pulse Rate 50 L Respiratory 18 Rate Blood Pressure 126/64 Laboratory Tests 03/07/19 03/09/19 03/09/19 15:51 05:23 05:23 WBC 3.8 L Hgb 15.0 Hct 44.9 Total Bilirubin 3.30 H 1.80 H AST 596 H 139 H ALT 833 H 421 H Objective Vital Signs - 12hr 03/09/19 03/09/19 04:45 07:01 Temperature 97.8 F 97.8 F Pulse Rate 56 L 50 L Respiratory 20 18 Rate Blood Pressure 116/64 126/64 O2 Sat by Pulse 94 94 Oximetry - Labs 03/09/19 05:23 03/09/19 05:23 Diabetes panel 03/09/19 Range/Units 05:23 Sodium 140 (137-145) mmol/L Potassium 3.9 (3.6-5.0) mmol/L Chloride 103.2 (98-107) mmol/L Carbon Dioxide 27 (22-30) mmol/L BUN 12 (9-20) mg/dL Creatinine 1.0 (0.8-1.5) mg/dL Glucose 82 (75-100) mg/dL Calcium 8.4 (8.4-10.2) mg/dL AST 139 H (5-40) units/L ALT 421 H (7-56) units/L Alkaline Phosphatase 142 H (35-129) units/L Total Protein 6.5 D (6.3-8.2) g/dL Albumin 3.6 L (3.9-5) g/dL Calcium panel 03/09/19 Range/Units 05:23 Calcium 8.4 (8.4-10.2) mg/dL Albumin 3.6 L (3.9-5) g/dL Pituitary panel 03/09/19 Range/Units 05:23 Sodium 140 (137-145) mmol/L Potassium 3.9 (3.6-5.0) mmol/L Chloride 103.2 (98-107) mmol/L Carbon Dioxide 27 (22-30) mmol/L BUN 12 (9-20) mg/dL Creatinine 1.0 (0.8-1.5) mg/dL Glucose 82 (75-100) mg/dL Calcium 8.4 (8.4-10.2) mg/dL Adrenal panel 03/09/19 Range/Units 05:23 Sodium 140 (137-145) mmol/L Potassium 3.9 (3.6-5.0) mmol/L Chloride 103.2 (98-107) mmol/L Carbon Dioxide 27 (22-30) mmol/L BUN 12 (9-20) mg/dL Creatinine 1.0 (0.8-1.5) mg/dL Glucose 82 (75-100) mg/dL Calcium 8.4 (8.4-10.2) mg/dL Total Bilirubin 1.80 H (0.1-1.2) mg/dL AST 139 H (5-40) units/L ALT 421 H (7-56) units/L Alkaline Phosphatase 142 H (35-129) units/L Total Protein 6.5 D (6.3-8.2) g/dL Albumin 3.6 L (3.9-5) g/dL
--- NOTE | 2019-03-09 14:48 | Magnetic Resonance Report ---
MR abdomen MRCP INDICATION: RUQ pain, gall stones. TECHNIQUE: Multiplanar, multisequence MR images were obtained through the abdomen without contrast. COMPARISON: CT abdomen and pelvis with contrast and abdominal ultrasound from 03/07/2019. FINDINGS: Lower chest: No significant abnormality. Liver: No significant abnormality. Biliary: Cholelithiasis is again noted with similar gallbladder wall thickening. No significant surro unding fluid/edema is noted. There is no biliary ductal dilatation. No choledocholithiasis is clearly seen. Pancreas: No significant abnormality. Spleen: No significant abnormality. Adrenals: No significant abnormality. Kidneys: No significant abnormality. GI tract: No significant abnormality of the stomach or visualized portions of the small bowel/colon. The previously seen proximal small bowel dilatation has resolved. The appendix is unremarkable as vis ualized. Peritoneum: No free fluid or fluid collection. Lymph nodes: No lymphadenopathy. Vasculature: No significant abnormality. Bones: No acute abnormality. Additional findings: None. IMPRESSION: 1. Stable cholelithiasis and gallbladder wall thickening. Chronic versus on chronic cholecystitis is a consideration. 2. No biliary obstruction or distinct choledocholithiasis. Signer Name: Goran Garcia MD Signed: 03/09/2019 2:44 PM Workstation Name: [id number]
[2019-03-09 15:53] VITALS: BP 141/89
--- NOTE | 2019-03-09 16:20 | Progress Note ---
Assessment and Plan Assessment and plan: 48-year-old man who presents with right upper quadrant and pain in the hypogastrium CT abdomen pelvis; cholelithiasis and diffuse gallbladder wall thickening, mild periportal edema. Right upper quadrant sono; cholelithiasis and some degree of chronic cholecystitis with superimposed acute cholecystitis --Acute and chronic cholecystitis Current antibiotics IV fluids and supportive care Follow MRCP, surgery following Nothing by mouth status --transaminitis; Closely monitor, GI consult if needed Follow MRCP --Cholelithiasis; supportive care Follow MRCP --DVT prophylaxis; Lovenox Closely monitor and adjust management as needed Plan of care is reviewed with the patient and his nurse Hospitalist Physical - Constitutional Vitals: Temp Pulse Resp BP Pulse Ox 98.1 F 61 20 141/89 97 03/09/19 15:00 03/09/19 15:00 03/09/19 15:00 03/09/19 15:00 03/09/19 15:00 General appearance: Present: no acute distress, well-nourished Results - Labs CBC & Chem 7: 03/09/19 05:23 03/09/19 05:23 Labs: Laboratory Last Values WBC 3.8 K/mm3 (4.5-11.0) L 03/09/19 05:23 RBC 5.00 M/mm3 (3.65-5.03) 03/09/19 05:23 Hgb 15.0 gm/dl (11.8-15.2) 03/09/19 05:23 Hct 44.9 % (35.5-45.6) 03/09/19 05:23 MCV 90 fl (84-94) 03/09/19 05:23 MCH 30 pg (28-32) 03/09/19 05:23 MCHC 33 % (32-34) 03/09/19 05:23 RDW 12.9 % (13.2-15.2) L 03/09/19 05:23 Plt Count 168 K/mm3 (140-440) 03/09/19 05:23 Lymph % (Auto) 29.8 % (13.4-35.0) 03/09/19 05:23 [place] % (Auto) 9.9 % (0.0-7.3) H 03/09/19 05:23 Eos % (Auto) 1.9 % (0.0-4.3) 03/09/19 05:23 Baso % (Auto) 0.9 % (0.0-1.8) 03/09/19 05:23 Lymph # 1.1 K/mm3 (1.2-5.4) L 03/09/19 05:23 [place] # 0.4 K/mm3 (0.0-0.8) 03/09/19 05:23 Eos # 0.1 K/mm3 (0.0-0.4) 03/09/19 05:23 Baso # 0.0 K/mm3 (0.0-0.1) 03/09/19 05:23 Seg Neutrophils % 57.5 % (40.0-70.0) 03/09/19 05:23 Seg Neutrophils # 2.2 K/mm3 (1.8-7.7) 03/09/19 05:23 Sodium 140 mmol/L (137-145) 03/09/19 05:23 Potassium 3.9 mmol/L (3.6-5.0) 03/09/19 05:23 Chloride 103.2 mmol/L (98-107) 03/09/19 05:23 Carbon Dioxide 27 mmol/L (22-30) 03/09/19 05:23 14 mmol/L 03/09/19 05:23 BUN 12 mg/dL (9-20) 03/09/19 05:23 1.0 mg/dL (0.8-1.5) 03/09/19 05:23 Estimated GFR > 60 ml/min 03/09/19 05:23 12 % 03/09/19 05:23 Glucose 82 mg/dL (75-100) 03/09/19 05:23 Calcium 8.4 mg/dL (8.4-10.2) 03/09/19 05:23 1.80 mg/dL (0.1-1.2) H 03/09/19 05:23 AST 139 units/L (5-40) H 03/09/19 05:23 ALT 421 units/L (7-56) H 03/09/19 05:23 142 units/L (35-129) H 03/09/19 05:23 6.5 g/dL (6.3-8.2) D 03/09/19 05:23 3.6 g/dL (3.9-5) L 03/09/19 05:23 1.2 % 03/09/19 05:23 27 units/L (13-60) 03/07/19 15:51 Thi (Yellow) 03/07/19 15:45 Clear (Clear) 03/07/19 15:45 5.0 (5.0-7.0) 03/07/19 15:45 Ur Specific [place] 1.016 (1.003-1.030) 03/07/19 15:45 <15 mg/dl mg/dL (Negative) 03/07/19 15:45 Neg mg/dL (Negative) 03/07/19 15:45 Neg mg/dL (Negative) 03/07/19 15:45 Mod (Negative) 03/07/19 15:45 Neg (Negative) 03/07/19 15:45 Neg (Negative) 03/07/19 15:45 4.0 mg/dL (<2.0) 03/07/19 15:45 Ur Leukocyte Esterase Neg (Negative) 03/07/19 15:45 3.0 /HPF (0.0-6.0) 03/07/19 15:45 7.0 /HPF (0.0-6.0) 03/07/19 15:45 U Epithel Cells (Auto) < 1.0 /HPF (0-13.0) 03/07/19 15:45 3+ /HPF 03/07/19 15:45 Active Medications - Current Medications Current Medications: Generic Name Dose Route Start Last Admin Trade Name Jaymeq PRN Reason Stop Dose Admin Acetaminophen 650 mg 03/07/19 22:40 03/08/19 16:03 Tylenol PO 650 mg Q4H PRN Administration Pain MILD(1-3)/Fever >100.5/FERRELL Enoxaparin Sodium 40 mg 03/08/19 10:00 03/09/19 09:04 Lovenox SUB-Q Not Given QDAY CLARICE Levofloxacin/Dextrose 750 mg in 150 mls @ 100 mls/hr 03/08/19 10:00 03/09/19 09:03 Levaquin 750mg/150ml IV 100 mls/hr Q24HR CLARICE Administration Protocol Sodium Chloride 1,000 mls @ 125 mls/hr 03/07/19 23:00 03/09/19 01:35 Nacl 0.45% 1000 Ml IV 125 mls/hr DIRECT CLARICE Administration Morphine Sulfate 4 mg 03/07/19 22:40 Morphine IV Q4H PRN Pain , Severe (7-10) Ondansetron HCl 4 mg 03/07/19 22:40 Zofran IV Q4HR PRN Nausea And Vomiting Sodium Chloride 10 ml 03/08/19 10:00 03/09/19 10:00 Sodium Chloride Flush Syringe 10 Ml IV Not Given BID CLARICE Sodium Chloride 10 ml 03/07/19 22:40 Sodium Chloride Flush Syringe 10 Ml IV PRN PRN LINE FLUSH
--- NOTE | 2019-03-09 18:10 | Discharge Summary ---
Providers - Providers Date of Admission: 03/07/19 22:40 Date of discharge: 03/09/19 Attending physician: DEBORAH BRAXTON 03/07/19 19:59 Consult to Physician [CONS] Urgent Comment: Consulting Provider: RENEE MTZ Physician Instructions: Reason For Exam: ruq pain Primary care physician: SURGICAL ASSIST Hospitalization Reason for admission: right upper quadrant pain Condition: Fair Pertinent studies: CT abdomen pelvis; cholelithiasis and diffuse gallbladder wall thickening, mild periportal edema. Right upper quadrant sono; cholelithiasis and some degree of chronic cholecystitis with superimposed acute cholecystitis MRCP; stable cholelithiasis and gallbladder wall thickening Chronic versus acute on chronic cholecystitis No biliary obstruction distinct choledocho lithiasis --Acute on chronic cholecystitis; Hospital course: 48-year-old man who presents with right upper quadrant and pain in the hypogastrium Patient was admitted to the hospital extensively evaluated with CT abdomen and pelvis right upper out quadrant ultrasound as well as MRCP Findings reviewed, surgery evaluates the patient placed on nothing by mouth status, monitoring with IV antibiotics However today patient did not want to stay and refused treatment and wants to leave AMA Recent consequences of leaving AGAINST MEDICAL ADVICE discussed in detail to the patient and family Verbalize understanding and left AMA signing this is the papers The surgeon requested me to give 5 days of a Levaquin prescription and advised the patient to follow up with him in the office in 3-4 days The above instructions were given to the patient and family The time of discharge patient has guarded prognosis CT abdomen pelvis; cholelithiasis and diffuse gallbladder wall thickening, mild periportal edema. Right upper quadrant sono; cholelithiasis and some degree of chronic cholecystitis with superimposed acute cholecystitis --Acute and chronic cholecystitis Current antibiotics IV fluids and supportive care Follow MRCP, surgery following Nothing by mouth status --transaminitis; Closely monitor, GI consult if needed Follow MRCP --Cholelithiasis; supportive care MRCP findings reviewed Patient left AMA Disposition: DC-07 LEFT AGAINST MED ADVICE Time spent for discharge: 32 min Core Measure Documentation - Palliative Care Palliative Care/ Comfort Measures: Not Applicable - Core Measures Any of the following diagnoses?: none Exam - Constitutional Vitals: Temp Pulse Resp BP Pulse Ox 98.1 F 61 20 141/89 97 03/09/19 15:00 03/09/19 15:00 03/09/19 15:00 03/09/19 15:00 03/09/19 15:00 General appearance: Present: no acute distress, well-nourished - EENT Eyes: Present: PERRL, EOM intact - Neck Neck: Present: supple, normal ROM - Respiratory Respiratory effort: normal Respiratory: bilateral: diminished, negative: rales, rhonchi, wheezing - Cardiovascular Rhythm: regular Heart Sounds: Present: S1 & S2 - Extremities Extremities: no ischemia, No edema - Abdominal General gastrointestinal: Present: soft, non-tender, non-distended, normal bowel sounds - Integumentary Integumentary: Present: clear, warm - Musculoskeletal Musculoskeletal: strength equal bilaterally, generalized weakness - Psychiatric Psychiatric: appropriate mood/affect, cooperative - Neurologic Neurologic: moves all extremities Plan Activity: advance as tolerated Diet: other (clear liquids) Follow up with: PRIMARY CAREMD [Primary Care Provider] - 7 Days RENEE MTZ MD [Staff Physician] - 3 Days Prescriptions: levoFLOXacin [Levaquin TAB] 500 mg PO QDAY #5 tablet
== END 2019-03-09 16:25 | disposition left against medical advice (07) ==
LOC: EDSEX → ED 15:24 → 3B-SURG 22:40
PROVIDERS: ADMIT Internal Medicine; ATTEND Internal Medicine
DX: K80.20 Calculus of gallbladder without cholecystitis without obstruction (principal)
CPT/HCPCS: 36415; 74177; 74181; 76705; 80048; 80053; 81001; 83690; 85025; 93005; 93010; 96365; 96366; 96367; 96375; C9113; G0378; J1956; J2270; J2405; J2543; J7030; Q9967; 99284; J1650